=== PATIENT | male | born 1975 | race Caucasian/White ===

== ENCOUNTER 2024-06-16 21:11 | Inpatient (IN) ==
[2024-06-16 22:36] LABS: Appearance Urine Clear (Clear); Bilirubin Urine Negative (Negative); Blood Urine Negative (Negative); Color Urine Dark Yellow; Glucose Urine UA Negative (Negative); Ketones Urine Negative (Negative); Leukocyte Esterase Urine Negative (Negative); Nitrite Urine Negative (Negative); Protein Urine Negative (Negative); Specific Gravity Urine 1.023 (1.000-1.030); Urobilinogen Urine Negative (Negative)
[2024-06-16 23:31] LABS: Basophils # (auto) 0.09 K/uL (0.00-0.20); Basophils % (auto) 0.4 %; Eosinophils # (auto) 0.03 K/uL (0.00-0.50); Eosinophils % (auto) 0.1 %; Hematocrit (blood only) 47.6 % (42.0-52.0); Immature Granulocytes # (auto) 0.35 K/uL (0.01-0.20); Immature Granulocytes % (auto) 1.6 %; Lymphocytes # (auto) 2.04 K/uL (1.20-3.40); Lymphocytes % (auto) 9.3 %; Mean Corpuscular Hemoglobin 29.3 pg (25.0-34.0); Mean Corpuscular Hgb Conc 33.6 g/dL (32.0-36.0); Mean Corpuscular Volume 87.2 fL (80.0-100.0); Mean Platelet Volume 9.3 fL (9.4-12.4); Monocytes # (auto) 1.79 K/uL (0.11-0.59); Monocytes % (auto) 8.1 %; Neutrophils # (auto) 17.71 K/uL (1.40-6.50); Neutrophils % (auto) 80.5 %; Platelet Count 442 K/uL (130-400); RDW Coefficient of Variation 13.7 % (11.5-14.5); RDW Standard Deviation 43.1 fL (36.4-46.3); Red Blood Count 5.46 M/uL (4.70-6.10); White Blood Count 22.01 K/ul (4.8-10.8)
[2024-06-16 23:48] LABS: Albumin Globulin Ratio 1.6 (0.9-2); Albumin Level 4.7 gm/dl (3.4-5.0); BUN Creatinine Ratio 13.8 (10-20); Bilirubin,Total 0.4 mg/dl (0.2-1.0); Calcium 9.3 mg/dl (8.6-10.3); Creatinine Clr Calc Pharmacy 110.8 ml/min; Globulin 2.9 gm/dl (2.5-4.0); Potassium 3.7 mmol/L (3.5-5.1); Total Protein 7.6 gm/dl (6.0-8.3)
[2024-06-16] MEDS: ONDANSETRON INJ 2 MG/ML 2 ML VIAL IV STA (23:58)
[2024-06-16] MEDS: SODIUM CHLORIDE 0.9% 1,000 ML IV SCH (23:59)
[2024-06-16] MEDS: HYDROmorphone INJ 1 MG/ML SYRINGE IV STA (23:59)
--- NOTE | 2024-06-17 00:25 | XRay Report ---
Exam(s): XR CXR 1 VIEW EXAM: XR Chest, 1 View CLINICAL HISTORY: Reason for exam: Sepsis. TECHNIQUE: Frontal view of the chest. COMPARISON: September 25, 2022 FINDINGS: Lungs: Bronchovascular crowding the lung bases due to underinflated lungs greatest exaggerated by large body habitus and portable technique. Mild basilar edema or infiltrate cannot be excluded. Calcified granuloma in the left lung apex, unchanged. Pleural space: Unremarkable. No pneumothorax. Heart: Unremarkable. No cardiomegaly. Mediastinum: Unremarkable. Normal mediastinal contour. Bones/joints: Previous left shoulder arthroplasty. No acute fracture. Upper abdomen: Unremarkable as visualized. No pneumoperitoneum under the diaphragm. IMPRESSION: Bronchovascular crowding the lung bases due to underinflated lungs greatest exaggerated by large body habitus and portable technique. Mild basilar edema or infiltrate cannot be excluded. Electronically signed by: Dale Peoples MD 06/17/24 00:24 AM
[2024-06-17] MEDS: PIPERACILLIN/TAZOBACTAM 4.5 GM/100 ML BAG IV ONE (00:31)
[2024-06-17] MEDS: OPTIRAY 320 100ml IV ONE (00:40)
[2024-06-17 00:44] LABS: Troponin I High Sensitivity 5.9 pg/ml (0-20)
[2024-06-17] MEDS: HYDROmorphone INJ 1 MG/ML SYRINGE IV STA (01:01)
--- NOTE | 2024-06-17 01:44 | CT Scan Report ---
EXAM: CT abd pelvis IV con only CLINICAL HISTORY: eval for perforated bowel?? TECHNIQUE: Multiple contiguous axial images were obtained from the level of diaphragm to the pubis symphysis. This study was acquired after the IV administration of iodinated contrast material, given the patient's indications for the examination. If IV contrast material had not been administered, the likelihood of detecting abnormalities relevant to the patient's condition would have been substantially decreased. Coronal and sagittal reformatted images were generated and reviewed to improve anatomic localization and optimize lesion detection. CT scan was performed according to ALARA (as low as reasonably achievable). COMPARISON: None. FINDINGS: The visualized lung bases are clear. ABDOMEN/PELVIS: Few sigmoid colonic diverticuli are noted. Mild wall thickening is noted along the sigmoid colon. Peridiverticular fat stranding is also seen. Mild pneumoperitoneum is detected. Findings likely suggestive of colitis with diverticulitis and perforation. No evidence of abscess formation. Small fat containing bilateral inguinal hernias are seen, larger on right side. The liver is normal in size and attenuation. No focal liver lesions are seen. There is no intra or extrahepatic biliary ductal dilatation. Hepatic vasculature is patent. The gallbladder is unremarkable. The spleen is unremarkable. The pancreas is unremarkable. Both adrenal glands are unremarkable. The kidneys are normal in size and attenuation. There is no hydronephrosis. No perinephric fat stranding is seen. No renal calculi or renal masses are identified. The ureters are normal in caliber and no ureteral calculi are seen. The bladder is normal in contour. No adenopathy or fluid collections are seen. The aorta is normal in caliber. No aggressive appearing osseous lesions are identified. IMPRESSION: 1. Few sigmoid colonic diverticuli are noted. Mild wall thickening is noted along the sigmoid colon. Peridiverticular fat stranding is also seen. 2. Mild pneumoperitoneum is detected. Findings likely suggestive of colitis/diverticulitis with perforation. No evidence of abscess or collection formation. 3. Small fat containing bilateral inguinal hernias are seen, larger on right side. Electronically signed by Osmar Lovelace 06-17-2024 01:43 AM
[2024-06-17] MEDS: SODIUM CHLORIDE 0.9% 500 ML IV SCH (02:15)
[2024-06-17] MEDS: SODIUM CHLORIDE 0.9% 500 ML IV ONE (02:17)
--- NOTE | 2024-06-17 02:19 | History & Physical Report ---
Date of Service June 17, 2024 Assessment & Plan (1) Diverticulitis: Plan: diverticulitis with perforation not septic IV zosyn IVF NPO if fails will need exploration History of Present Illness Primary Care Provider: Osmar Osei DO This is a 49-year-old male who comes to the ED with acute abdominal pain. He denies any fevers or chills. A CT scan was done which shows diverticulitis with small perforation. Allergies Allergy/AdvReac Type Severity Reaction Status Date / Time No Known Drug Allergies Allergy Verified 06/06/24 09:17 Home Medications Medication Instructions Recorded Confirmed Type glucosamine 750 mg-MSM 60 1 tab PO DAILY 02/27/22 06/17/24 History mg-chondroit 150 mg-hyaluron ac 1 mg tablet (glucosamine-chondroitin) multivitamin (Daily Multi-Vitamin 1 tab PO DAILY 02/27/22 06/17/24 History tablet) albuterol sulfate 90 mcg/actuation 2 inh inhalation QID PRN shortness 09/25/22 06/17/24 Rx aerosol inhaler of breath or wheezing #8.5 grams Ernestine Kyle Mushroom 1 tab PO DAILY 02/18/24 06/17/24 History Solomon Multivitamin For Men 1 tab PO DAILY 02/18/24 06/17/24 History diclofenac sodium 75 mg 75 mg PO BID PRN Pain 02/18/24 06/17/24 History tablet,delayed release meloxicam 15 mg tablet 15 mg PO DAILY PRN Pain 02/18/24 06/17/24 History amlodipine 5 mg tablet 5 mg PO QAM #90 tabs 03/10/24 06/17/24 Rx pantoprazole 40 mg tablet,delayed 40 mg PO QAM #90 tabs 03/10/24 06/17/24 Rx release (Protonix) oxycodone 5 mg tablet 5 mg PO Q6H PRN pain #30 tabs 04/25/24 06/17/24 Rx hydroxyzine HCl 25 mg tablet 25 mg PO BID PRN itching #60 tabs 04/29/24 06/17/24 Rx triamcinolone acetonide 0.1 % 1 applic topical TID PRN eczema 06/06/24 06/17/24 Rx topical cream #30 grams prednisone 20 mg tablet 20 mg PO DAILY #18 tabs 06/12/24 06/17/24 Rx Past Med/Surg History Problem List (Updated 06/17/24 @ 02:24 by Yasmani Lo MD) Diverticulitis 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 of left shoulder Medical History Asthmatic bronchitis Acid reflux Hypertension Osteoarthritis of left shoulder Surgical History H/O elbow surgery S/P appendectomy S/P wisdom tooth extraction Family History Grandfather (Maternal) Myocardial infarction Grandfather (Paternal) Prostate cancer Denies family history of Ovarian cancer Breast cancer Colorectal cancer Social History Smoking Status: Former smoker Tobacco Type: Cigarettes and Smokeless Tobacco (Dip or Chew) Age Started Using Tobacco: 21; Age Quit Using Tobacco: 39; packs per day: 1; Cigarettes Per Day: 20; Second Hand Exposure: No; Do You Dip or Chew Tobacco: Yes (Daily- Advised none DOS); Hx Alcohol Use: Yes Alcohol type: beer and hard liquor Alcohol Intake Frequency: 2-3 x/Week Hx Substance Use: No Preferred Language: Arabic Communication Ability: Effective Visual Impairment: No Limitations Hearing Ability: Normal Billet Shearer Required: No Beliefs That Will Affect Care: None marital status: Current Living Situation: Spouse current occupational status: employed 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[employer] How many Children do You have: 3 Feels Safe at Home: Yes Childhood Exposure to Second-Hand Smoke: Yes Diet: regular caffeine: Yes during the past year weight has: remained stable Dental Care, Regularly: Yes Physical Activity Frequency: Daily Seatbelt Use: sometimes Sunscreen Use: No Assistive Devices: Glasses Review of Systems + anorexia; no fever and no chills no problem reported no problem reported no cough and no dyspnea no chest pain + abdominal pain; no nausea, no vomiting and no change in bowel habits no dysuria no back pain no problem reported no localized weakness and no generalized weakness no behavioral changes no easy bleeding and no easy bruising Physical Exam Constitutional: WD/WN, vitals as above Eyes: no scleral abnormality ENMT: external ear and nose normal, oropharynx normal Neck: trachea midline Respiratory: normal respiratory effort, lungs clear to auscultation no respiratory distress Cardiovascular: RRR, no murmur, no edema Gastrointestinal (Abdomen): Inspection/Auscultation: abdomen normal to inspection and + abdomen distended; + abnormal bowel sounds Percussion/Palpation: + abdomen tender, + abdomen rigid and abdomen soft; no guarding Musculoskeletal: Head/Neck/Chest: normocephalic and head atraumatic Skin: no rashes, warm and dry Results & Data Vital Signs (Past 12 Hours) Vital Signs Temp Pulse Pulse Resp BP BP Pulse Ox 06/17/24 01:30 100 H 19 151/92 H 93 06/17/24 01:09 95 H 17 137/86 95 06/16/24 23:39 85 18 122/80 99 06/16/24 23:08 80 18 130/84 96 06/16/24 21:25 37 C 90 19 122/86 95 O2 Del Method 06/17/24 01:30 Room Air 06/17/24 01:09 06/16/24 23:39 Room Air 06/16/24 23:08 Room Air 06/16/24 21:25 Room Air Diagnostic Findings EXAM: CT abd pelvis IV con only ADDENDUM: [facility] was called at [phone] at 12:44 AM [facility], 06/17/2024, and Luz Bullard was informed regarding the presence of critical medical findings in the report and she confirmed that they have received the report Electronically signed by Osmar Lovelace 06-17-2024 01:47 AM ADDENDUM END ADDENDUM Addendum Report EXAM: CT abd pelvis IV con only ADDENDUM: [facility] was called at [phone] at 12:44 AM [facility], 06/17/2024, and Luz Bullard was informed regarding the presence of critical medical findings in the report and she confirmed that they have received the report Electronically signed by Osmar Lovelace 06-17-2024 01:47 AM ADDENDUM END ADDENDUM Addendum Report EXAM: CT abd pelvis IV con only ADDENDUM: [facility] ER was called at [phone] at 12:44 AM [employer], 06/17/2024, and Luz Bullard was informed regarding the presence of critical medical findings in the report and she confirmed that they have received the report Electronically signed by Osmar Lovelace 06-17-2024 01:47 AM ADDENDUM END EXAM: CT abd pelvis IV con only CLINICAL HISTORY: eval for perforated bowel?? TECHNIQUE: Multiple contiguous axial images were obtained from the level of diaphragm to the pubis symphysis. This study was acquired after the IV administration of iodinated contrast material, given the patient's indications for the examination. If IV contrast material had not been administered, the likelihood of detecting abnormalities relevant to the patient's condition would have been substantially decreased. Coronal and sagittal reformatted images were generated and reviewed to improve anatomic localization and optimize lesion detection. CT scan was performed according to ALARA (as low as reasonably achievable). COMPARISON: None. FINDINGS: The visualized lung bases are clear. ABDOMEN/PELVIS: Few sigmoid colonic diverticuli are noted. Mild wall thickening is noted along the sigmoid colon. Peridiverticular fat stranding is also seen. Mild pneumoperitoneum is detected. Findings likely suggestive of colitis with diverticulitis and perforation. No evidence of abscess formation. Small fat containing bilateral inguinal hernias are seen, larger on right side. The liver is normal in size and attenuation. No focal liver lesions are seen. There is no intra or extrahepatic biliary ductal dilatation. Hepatic vasculature is patent. The gallbladder is unremarkable. The spleen is unremarkable. The pancreas is unremarkable. Both adrenal glands are unremarkable. The kidneys are normal in size and attenuation. There is no hydronephrosis. No perinephric fat stranding is seen. No renal calculi or renal masses are identified. The ureters are normal in caliber and no ureteral calculi are seen. The bladder is normal in contour. No adenopathy or fluid collections are seen. The aorta is normal in caliber. No aggressive appearing osseous lesions are identified. IMPRESSION: 1. Few sigmoid colonic diverticuli are noted. Mild wall thickening is noted along the sigmoid colon. Peridiverticular fat stranding is also seen. 2. Mild pneumoperitoneum is detected. Findings likely suggestive of colitis/diverticulitis with perforation. No evidence of abscess or collection formation. 3. Small fat containing bilateral inguinal hernias are seen, larger on right side.
[2024-06-17] MEDS ORDERED: MoRPHine SULFATE 2 MG/ML CARP IV PRN ×2 (04:11→10:43)
[2024-06-17] MEDS ORDERED: ACETAMINOPHEN 325 MG TAB PO PRN (04:11)
[2024-06-17] MEDS ORDERED: ONDANSETRON INJ 2 MG/ML 2 ML VIAL IV PRN (04:11)
[2024-06-17] MEDS: MoRPHine SULFATE 2 MG/ML CARP IV PRN ×2 (05:10→20:29)
[2024-06-17] MEDS: KETOROLAC 30 MG/ML VIAL IV PRN (05:30)
[2024-06-17 07:48] LABS: Basophils # (auto) 0.06 K/uL (0.00-0.20); Basophils % (auto) 0.3 %; Eosinophils # (auto) 0.03 K/uL (0.00-0.50); Eosinophils % (auto) 0.2 %; Hematocrit (blood only) 38.3 % (42.0-52.0); Hemoglobin 12.9 g/dl (14.0-18.0); Immature Granulocytes # (auto) 0.16 K/uL (0.01-0.20); Immature Granulocytes % (auto) 0.8 %; Lymphocytes % (auto) 8.3 %; Mean Corpuscular Hemoglobin 29.1 pg (25.0-34.0); Mean Corpuscular Hgb Conc 33.7 g/dL (32.0-36.0); Mean Corpuscular Volume 86.5 fL (80.0-100.0); Mean Platelet Volume 9.4 fL (9.4-12.4); Monocytes # (auto) 1.82 K/uL (0.11-0.59); Monocytes % (auto) 9.4 %; Neutrophils # (auto) 15.67 K/uL (1.40-6.50); Platelet Count 382 K/uL (130-400); RDW Coefficient of Variation 13.7 % (11.5-14.5); RDW Standard Deviation 43.3 fL (36.4-46.3); Red Blood Count 4.43 M/uL (4.70-6.10); White Blood Count 19.34 K/ul (4.8-10.8)
--- NOTE | 2024-06-17 08:54 | Surgery Progress Note ---
Date of Service June 17, 2024 Assessment & Plan (1) Diverticulitis: Plan: Complicated diverticulitis with microperf, no abscess avss Leukocytosis improving (22k --> 19K) Plan: Pain management as needed IV zosyn IVF NPO, okay for ice chips encourage ambulation will need colonoscopy in 6-8 weeks, low fiber diet on discharge Dr. boogie has seen and examined pt, agrees with above. Admission and Anticipated Discharge Date Admission Date: June 17, 2024 Subjective feeling slightly better but still having moderate pain no nausea or vomiting some pain after urinating no fevers or chills Physical Exam Constitutional: WD/WN, vitals as above cooperative; no acute distress and not ill appearing Respiratory: normal respiratory effort, lungs clear to auscultation Cardiovascular: RRR, no murmur, no edema Gastrointestinal (Abdomen): Inspection/Auscultation: abdomen normal to inspection and + abdomen distended (mild) Percussion/Palpation: + abdomen tender (LLQ and RLQ), + guarding (voluntary in RLQ and LLQ) and abdomen soft; abdomen not rigid and abdomen not firm Skin: no rashes, warm and dry Psychiatric: A+Ox3, euthymic affect Results & Data Vital Signs (Past 12 Hours) Vital Signs Temp Pulse Pulse Resp BP BP Pulse Ox 06/17/24 06:12 88 95 06/17/24 04:05 37.1 C 91 H 16 149/84 H 93 06/17/24 01:30 100 H 19 151/92 H 93 06/17/24 01:09 95 H 17 137/86 95 06/16/24 23:39 85 18 122/80 99 06/16/24 23:08 80 18 130/84 96 06/16/24 21:25 37 C 90 19 122/86 95 O2 Del Method 06/17/24 06:12 Room Air 06/17/24 04:05 Room Air 06/17/24 01:30 Room Air 06/17/24 01:09 06/16/24 23:39 Room Air 06/16/24 23:08 Room Air 06/16/24 21:25 Room Air Laboratory Results 06/17/24 06/16/24 06/16/24 Range/Units 07:07 23:39 23:30 WBC 19.34 H (4.8-10.8) K/ul RBC 4.43 L (4.70-6.10) M/uL Hgb 12.9 L D (14.0-18.0) g/dl Hct 38.3 L (42.0-52.0) % MCV 86.5 (80.0-100.0) fL MCH 29.1 (25.0-34.0) pg MCHC 33.7 (32.0-36.0) g/dL RDW Std Deviation 43.3 (36.4-46.3) fL RDW Coeff of Danilo 13.7 (11.5-14.5) % Plt Count 382 (130-400) K/uL MPV 9.4 (9.4-12.4) fL Immature Gran % (Auto) 0.8 % Neut % (Auto) 81.0 % Lymph % (Auto) 8.3 % [place] % (Auto) 9.4 % Eos % (Auto) 0.2 % Baso % (Auto) 0.3 % Neut # (Auto) 15.67 H (1.40-6.50) K/uL Lymph # (Auto) 1.60 (1.20-3.40) K/uL [place] # (Auto) 1.82 H (0.11-0.59) K/uL Eos # (Auto) 0.03 (0.00-0.50) K/uL Baso # (Auto) 0.06 (0.00-0.20) K/uL Immature Gran # (Auto) 0.16 (0.01-0.20) K/uL Sodium (136-145) mmol/L Potassium (3.5-5.1) mmol/L Chloride (98-107) mmol/L Carbon Dioxide (21-32) mmol/L Anion Gap (3-11) BUN (6-23) mg/dl Creatinine (0.6-1.4) mg/dl Est Cr Clr Drug Dosing ml/min eGFR BUN/Creatinine Ratio (10-20) Glucose (70-99(Fasting)) mg/dl Lactate 1.9 (0.4-2.0) mmol/L Calcium (8.6-10.3) mg/dl Magnesium 2.0 (1.7-2.4) mg/dl Total Bilirubin (0.2-1.0) mg/dl AST (13-39) U/L ALT (7-52) U/L Alkaline Phosphatase (34-104) U/L Troponin I High Sens 5.9 (0-20) pg/ml Total Protein (6.0-8.3) gm/dl Albumin (3.4-5.0) gm/dl Globulin (2.5-4.0) gm/dl Albumin/Globulin Ratio (0.9-2) Lipase (11-82) U/L Procalcitonin (0-0.5) ng/ml Urine Color Urine Appearance (Clear) Urine pH (4.5-7.5) Ur Specific [place] (1.000-1.030) Urine Protein (Negative) Urine Glucose (UA) (Negative) Urine Ketones (Negative) Urine Blood (Negative) Urine Nitrite (Negative) Urine Bilirubin (Negative) Urine Urobilinogen (Negative) Ur Leukocyte Esterase (Negative) 06/16/24 06/16/24 06/16/24 Range/Units 23:05 22:56 22:21 WBC 22.01 H (4.8-10.8) K/ul RBC 5.46 (4.70-6.10) M/uL Hgb 16.0 (14.0-18.0) g/dl Hct 47.6 (42.0-52.0) % MCV 87.2 (80.0-100.0) fL MCH 29.3 (25.0-34.0) pg MCHC 33.6 (32.0-36.0) g/dL RDW Std Deviation 43.1 (36.4-46.3) fL RDW Coeff of Danilo 13.7 (11.5-14.5) % Plt Count 442 H (130-400) K/uL MPV 9.3 L (9.4-12.4) fL Immature Gran % (Auto) 1.6 % Neut % (Auto) 80.5 % Lymph % (Auto) 9.3 % [place] % (Auto) 8.1 % Eos % (Auto) 0.1 % Baso % (Auto) 0.4 % Neut # (Auto) 17.71 H (1.40-6.50) K/uL Lymph # (Auto) 2.04 (1.20-3.40) K/uL [place] # (Auto) 1.79 H (0.11-0.59) K/uL Eos # (Auto) 0.03 (0.00-0.50) K/uL Baso # (Auto) 0.09 (0.00-0.20) K/uL Immature Gran # (Auto) 0.35 H (0.01-0.20) K/uL Sodium 142 (136-145) mmol/L Potassium 3.7 (3.5-5.1) mmol/L Chloride 104 (98-107) mmol/L Carbon Dioxide 30 (21-32) mmol/L Anion Gap 8 (3-11) BUN 15 (6-23) mg/dl Creatinine 1.09 (0.6-1.4) mg/dl Est Cr Clr Drug Dosing 110.8 ml/min eGFR 84.24 BUN/Creatinine Ratio 13.8 (10-20) Glucose 120 H (70-99(Fasting)) mg/dl Lactate (0.4-2.0) mmol/L Calcium 9.3 (8.6-10.3) mg/dl Magnesium (1.7-2.4) mg/dl Total Bilirubin 0.4 (0.2-1.0) mg/dl AST 15 (13-39) U/L ALT 22 (7-52) U/L Alkaline Phosphatase 70 (34-104) U/L Troponin I High Sens (0-20) pg/ml Total Protein 7.6 (6.0-8.3) gm/dl Albumin 4.7 (3.4-5.0) gm/dl Globulin 2.9 (2.5-4.0) gm/dl Albumin/Globulin Ratio 1.6 (0.9-2) Lipase 16 (11-82) U/L Procalcitonin 0.06 (0-0.5) ng/ml Urine Color Dark Yellow Urine Appearance Clear (Clear) Urine pH 6.0 (4.5-7.5) Ur Specific [place] 1.023 (1.000-1.030) Urine Protein Negative (Negative) Urine Glucose (UA) Negative (Negative) Urine Ketones Negative (Negative) Urine Blood Negative (Negative) Urine Nitrite Negative (Negative) Urine Bilirubin Negative (Negative) Urine Urobilinogen Negative (Negative) Ur Leukocyte Esterase Negative (Negative)
[2024-06-17] MEDS: PIPERACILLIN/TAZOBACTAM 4.5 GM/100 ML BAG IV SCH (08:58)
[2024-06-17] MEDS: amLODIPine BESYLATE 5 MG TAB PO SCH (08:58)
[2024-06-17] MEDS: PANTOprazole 40 MG TAB PO SCH (08:58)
[2024-06-17] MEDS: MoRPHine SULFATE 4 MG/ML 1 ML CARP\\VIAL IV PRN (12:55)
[2024-06-18 06:33] LABS: Basophils % (auto) 0.4 %; Eosinophils % (auto) 0.9 %; Hematocrit (blood only) 41.1 % (42.0-52.0); Hemoglobin 13.9 g/dl (14.0-18.0); Immature Granulocytes # (auto) 0.16 K/uL (0.01-0.20); Immature Granulocytes % (auto) 0.7 %; Lymphocytes # (auto) 1.46 K/uL (1.20-3.40); Lymphocytes % (auto) 6.5 %; Mean Corpuscular Hemoglobin 29.7 pg (25.0-34.0); Mean Corpuscular Hgb Conc 33.8 g/dL (32.0-36.0); Mean Corpuscular Volume 87.8 fL (80.0-100.0); Mean Platelet Volume 9.5 fL (9.4-12.4); Monocytes % (auto) 7.2 %; Neutrophils # (auto) 18.78 K/uL (1.40-6.50); Neutrophils % (auto) 84.3 %; Platelet Count 392 K/uL (130-400); RDW Coefficient of Variation 13.4 % (11.5-14.5); RDW Standard Deviation 43.3 fL (36.4-46.3); Red Blood Count 4.68 M/uL (4.70-6.10)
[2024-06-18 07:36] LABS: BUN Creatinine Ratio 16.5 (10-20); Calcium 8.2 mg/dl (8.6-10.3); Creatinine Clr Calc Pharmacy 124.1 ml/min; Potassium 3.6 mmol/L (3.5-5.1)
--- NOTE | 2024-06-18 10:41 | Surgery Progress Note ---
Date of Service June 18, 2024 Assessment & Plan (1) Diverticulitis: Plan: continue abx begin clears hospitalist to see for HTN Admission and Anticipated Discharge Date Admission Date: June 17, 2024 Subjective clinically improved fever overnight WBC slightly elevated Review of Systems Constitutional: + fever; no chills Respiratory: no cough and no dyspnea Cardiovascular: no chest pain Gastrointestinal: + abdominal pain; no nausea, no vomiting and no diarrhea/loose stools Genitourinary: no dysuria Musculoskeletal: no back pain Neurologic: no localized weakness and no generalized weakness Psychiatric: no behavioral changes Hematologic / Lymphatic: no easy bleeding and no easy bruising Physical Exam Constitutional: WD/WN, vitals as above Respiratory: normal respiratory effort, lungs clear to auscultation Cardiovascular: RRR, no murmur, no edema Gastrointestinal (Abdomen): Inspection/Auscultation: abdomen normal to inspection and normal bowel sounds; abdomen not distended Percussion/Palpation: + abdomen tender and abdomen soft; no guarding and abdomen not rigid Musculoskeletal: Head/Neck/Chest: normocephalic and head atraumatic Skin: no rashes, warm and dry Results & Data Vital Signs (Past 12 Hours) Vital Signs Temp Pulse Resp BP Pulse Ox O2 Del Method 06/18/24 06:52 37.0 C 74 16 127/78 94 Room Air
[2024-06-18] MEDS ORDERED: hydrALAZINE HCL 20 MG/ML VIAL IV PRN (11:52)
--- NOTE | 2024-06-18 11:56 | Hospitalist Consultation ---
Date of Consultation June 18, 2024 Assessment & Plan (1) Diverticulitis: (2) Hypertension: Plan Mr. Tse is a pleasant 49-year-old male with PMH of hypertension, asthmatic bronchitis, osteoarthritis of left shoulder, GERD, and eczema. He presented to the ED on 06/17/2024 with acute abdominal pain and CT scan revealed diverticulitis with small perforation, no abscess. He was admitted under general surgery's service. He has been treated conservatively with IV antibiotics and supportive measures. Hospital medicine was consulted for hypertension. At time of consult, patient's blood pressure is 137/86. #Diverticulitis Continue management per primary team #Hypertension At time of consult, patient's blood pressure is 137/86 Continue home hypertension regimen of amlodipine 5 mg daily Would ensure pain is controlled - patient reports it is at time of consult Will add hydralazine 10 mg IV Q8H PRN for SBP>185 or DBP>95. No additional blood pressure management indicated at this time Hospital medicine will sign off at this time. Please reach out with any additional questions or concerns. Supervising Physician Co-Signing Physician Notes Patient seen and examined, chart reviewed, case discussed with Ani Panchal PA-C and I agree with the assessment and plan as above except as otherwise noted Labs and images reviewed 49-year-old male with history of hypertension, asthmatic bronchitis, OA, GERD, eczema. Presented with acute abdominal pain and found to have diverticulitis with small perforation without significant abscess. Was admitted by surgery and medicine consulted for comanagement. He is normotensive and afebrile. Pain is adequately controlled. Blood pressure control is acceptable at time of visit. Can keep hydralazine on-call as noted however would not use unless he has persistently elevated SBP greater than [id number] and pain is adequately treated. Does not appear toxic CT independently reviewed. CT is with a few small colonic diverticuli, mild pneumoperitoneum suggestive of colitis/diverticulitis with perforation. Leukocytosis 22 is present. Agree with treatment of diverticulitis with Zosyn. Surgery is following due to perforation, surgical intervention is not recommended at this time. If continued improvement narrow to Unasyn to target Augmentin as oral option. Multimodal pain control, Tylenol, Toradol, hydromorphone for breakthrough. Will decrease Toradol from 30 mg every 6 to 10 mg every 6 maximize benefit while minimizing renal risks. At bedside exam for reassessment abd is with minimal diffuse TTP, no rebound/involuntary guarding. Pt feels this is significantly improved compared to prior exam. Continue serial exams Agree with above History of Present Illness Reason for Consultation: Hypertension Requesting Physician: Yasmani Lo MD Attending Physician: Yasmani Lo MD History of Present Illness Mr. Tse is a pleasant 49-year-old male with PMH of hypertension, asthmatic bronchitis, osteoarthritis of left shoulder, GERD, and eczema. He presented to the ED on 06/17/2024 with acute abdominal pain and CT scan revealed diverticulitis with small perforation, no abscess. He has been treated conservatively with IV antibiotics and supportive measures. Hospital medicine was consulted for hypertension. At time of consult, patient's blood pressure is 137/86. He reports feeling better than when he first came in. He is tolerating his advancement to clear liquid diet well. He reports some abdominal pain but notes this is improved than previously and well-controlled with medication. He denies chills, dizziness, lightheadedness, chest pain, shortness of breath, nausea, vomiting, diarrhea, urinary symptoms. He did have a headache earlier which he attributed to his NPO status and notes this is improved at this time. He reports that he takes amlodipine 5 mg daily at home for his hypertension. Mr. Tse denies any concerns or questions at this time. Allergies Allergy/AdvReac Type Severity Reaction Status Date / Time No Known Drug Allergies Allergy Verified 06/06/24 09:17 Home Medications Medication Instructions Recorded Confirmed Type glucosamine 750 mg-MSM 60 1 tab PO DAILY 02/27/22 06/17/24 History mg-chondroit 150 mg-hyaluron ac 1 mg tablet (glucosamine-chondroitin) multivitamin (Daily Multi-Vitamin 1 tab PO DAILY 02/27/22 06/17/24 History tablet) albuterol sulfate 90 mcg/actuation 2 inh inhalation QID PRN shortness 09/25/22 06/17/24 Rx aerosol inhaler of breath or wheezing #8.5 grams Lions Saroj Mushroom 1 tab PO DAILY 02/18/24 06/17/24 History Solomon Multivitamin For Men 1 tab PO DAILY 02/18/24 06/17/24 History diclofenac sodium 75 mg 75 mg PO BID PRN Pain 02/18/24 06/17/24 History tablet,delayed release meloxicam 15 mg tablet 15 mg PO DAILY PRN Pain 02/18/24 06/17/24 History amlodipine 5 mg tablet 5 mg PO QAM #90 tabs 03/10/24 06/17/24 Rx pantoprazole 40 mg tablet,delayed 40 mg PO QAM #90 tabs 03/10/24 06/17/24 Rx release (Protonix) oxycodone 5 mg tablet 5 mg PO Q6H PRN pain #30 tabs 04/25/24 06/17/24 Rx hydroxyzine HCl 25 mg tablet 25 mg PO BID PRN itching #60 tabs 04/29/24 06/17/24 Rx triamcinolone acetonide 0.1 % 1 applic topical TID PRN eczema 06/06/24 06/17/24 Rx topical cream #30 grams prednisone 20 mg tablet 20 mg PO DAILY #18 tabs 06/12/24 06/17/24 Rx Patient History Medical History Asthmatic bronchitis Acid reflux Hypertension Osteoarthritis of left shoulder Surgical History H/O elbow surgery S/P appendectomy S/P wisdom tooth extraction Family History Grandfather (Maternal) Myocardial infarction Grandfather (Paternal) Prostate cancer Denies family history of Ovarian cancer Breast cancer Colorectal cancer Social History Smoking Status: Never smoker Tobacco Type: Smokeless Tobacco (Dip or Chew) Age Started Using Tobacco: 21; Age Quit Using Tobacco: 39; packs per day: 1; Cigarettes Per Day: 20; Second Hand Exposure: No; Do You Dip or Chew Tobacco: Yes; Tobacco Cessation Education Requested by Patient: No Hx Alcohol Use: Yes Alcohol type: beer Alcohol Intake Frequency: 2-3 x/Week Hx Substance Use: No Preferred Language: Persian Communication Ability: Effective Visual Impairment: No Limitations Hearing Ability: Normal Spike Machine Feeder Required: No Beliefs That Will Affect Care: None marital status: Current Living Situation: Spouse and Family Current Living Situation Comment: Lives with and 3 children. 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 Cardiac: Regular rate and rhythm without murmurs gallops or rubs. No peripheral edema. Pulm: Clear to auscultation bilaterally without wheezes, rales or rhonchi. Normal respiratory effort. 97% on room air. Abdominal: Soft, nondistended. Tender to palpation. No guarding or rebound tenderness. Bowel sounds present. Neuro: A&O x3. No focal neurological deficits. Results & Data Results & Data Vital Signs (Past 12 Hours) Vital Signs Temp Pulse Resp BP Pulse Ox O2 Del Method 06/18/24 11:03 99.3 F 65 22 137/86 97 Room Air 06/18/24 10:00 99.2 F 62 20 138/89 96 Room Air 06/18/24 06:52 98.6 F 74 16 127/78 94 Room Air Laboratory Results Reviewed CBC with differential Reviewed BMP Diagnostic Findings Reviewed CT A/P Reviewed CXR PG Care Time/CCT Total # of Minutes Spent Total Time Spent with Patient: Total time spent is greater than 50% in coordination of care (as documented) at patient's floor/unit and/or counseling patient: Coding Level of Care Code 41564 IN/OBS CONSULT LVL 3,45M Diagnoses Diverticulitis K57.92 Hypertension I10
--- NOTE | 2024-06-18 13:45 | Emergency Department Note ---
Impression & Plan Diverticulitis of intestine with perforation Admit to General Surgery ED Provider Note NAME: ZINA APARICIO AGE: 49 SEX: Male INFORMANT: Patient ED PROVIDER(S): Luz Meraz DO CHIEF COMPLAINT: Suprapubic abdominal pain PLAN: Disposition: Admit to general surgery MEDICAL DECISION MAKING: This is a 49-year-old male patient who presents to the emergency department complaining of sudden onset of abdominal pain and pelvic pain. Patient describes radiation of pain into his groin and becoming diaphoretic. He also describes some urinary symptoms. Patient was noted to have significant leukocytosis with a white count of 22,000. A septic protocol was performed. She was immediately given a dose of IV Zosyn. Other laboratory studies were unremarkable with a normal H&H, glucose 120. Troponin was negative. Lactate and procalcitonin were negative. CT scan of the abdomen/pelvis showed evidence of sigmoid diverticulitis with small area of perforation. Patient's pain was treated with IV Dilaudid. I discussed the case with the surgeon on-call and he evaluated the patient for admission to the hospital. Care/management discussed with: manager financial and general surgery on-call Triage Nursing notes: reviewed and agree with them. Vital Signs: reviewed and unremarkable Additional History obtained from: Patient's is at the bedside Differential Diagnosis: Cystitis, pyelonephritis, ureteral colic, diverticulitis, colitis, perforated diverticulitis, inguinal hernia Diagnostics, independently interpreted by me: ECG: Normal Sinus Rhythm at a rate of 92. No ST/ T wave changes or signs of ischemia. There is no ectopy. Cardiac Monitoring: Normal sinus rhythm at 96 Imaging studies: CT scan of the abdomen/pelvis: As per [facility] HPI: 49 year old Male arrives for evaluation of RLQ abd. pain. Around noontime today, the patient developed suprapubic abdominal cramping and pelvic pain. He states the pain seemed to go into his groin area. He developed urinary frequency and dysuria. He felt a cold sensation began to sweat he denies ever having pain like this in the past. PAST MEDICAL HISTORY: Patient was on a steroid taper for another medical issue, PAST SURGICAL HISTORY: Recent shoulder surgery, SOCIAL HISTORY: , HOME MEDICATIONS: See list ALLERGIES: None VITALS: See Below PHYSICAL EXAMINATION: HEENT: Head - normocephalic and atraumatic. Pupils are equal, round, and reactive to light. Extraocular eye muscles are intact, and sclera are anicteric. Nose - moist nasal mucosa without discharge. Mouth - moist buccal mucosa. Oropharynx is nonerythematous and there is no tonsillar exudate or edema noted. Neck: Supple; no cervical lymphadenopathy or nuchal rigidity Heart: Regular rate and rhythm. There is a normal S1 and S2 with no murmurs, clicks, or gallops appreciated. Lungs: Clear to auscultation bilaterally with no wheezes, rales, or rhonchi. Abdomen: Soft moderate tenderness to palpation in the right lower quadrant of the abdomen and suprapubic region. The rest of the abdomen is nondistended, with good bowel sounds. There are no palpable pulsatile masses or hepatosplenomegaly. There is no guarding, rigidity, or rebound noted. Extremities: No evidence of cyanosis, clubbing, or edema. There are easily palpable peripheral pulses. Skin: warm and dry with good turgor and no rashes. Emergency Department treatment: front desk monitor, IV normal saline bolus, IV Dilaudid, IV Zofran, IV Zosyn, IV normal saline drip Emergency Department course: The patient was evaluated room A-9. A complete history and physical was performed. An order was placed for continuous cardiac monitoring. The patient was in a normal sinus rhythm at a rate of 96. Twelve- lead EKG was obtained as described above. Once the patient was noted to have a white blood cell count greater than 22,000, a septic workup was ordered including blood cultures and the patient was ordered to have IV Zosyn. CT scan of the abdomen/pelvis was performed. The patient was placed on a normal saline drip and I contacted the surgeon on-call. Patient remains hemodynamically stable. Past Med/Surg History Problem List (Updated 06/18/24 @ 13:45 by Luz Meraz DO) Diverticulitis of intestine with perforation (Acute) Diverticulitis 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 of left shoulder Medical History Asthmatic bronchitis Acid reflux Hypertension Osteoarthritis of left shoulder Surgical History H/O elbow surgery S/P appendectomy S/P wisdom tooth extraction Family History Grandfather (Maternal) Myocardial infarction Grandfather (Paternal) Prostate cancer Denies family history of Ovarian cancer Breast cancer Colorectal cancer Social History Smoking Status: Never smoker Tobacco Type: Smokeless Tobacco (Dip or Chew) Age Started Using Tobacco: 21; Age Quit Using Tobacco: 39; packs per day: 1; Cigarettes Per Day: 20; Second Hand Exposure: No; Do You Dip or Chew Tobacco: Yes; Tobacco Cessation Education Requested by Patient: No Hx Alcohol Use: Yes Alcohol type: beer Alcohol Intake Frequency: 2-3 x/Week Hx Substance Use: No Preferred Language: Danish Communication Ability: Effective Visual Impairment: No Limitations Hearing Ability: Normal Marketing Agent Required: No Beliefs That Will Affect Care: None marital status: Current Living Situation: Spouse and Family Current Living Situation Comment: Lives with and 3 children. 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 How many Children do You have: 3 Other Information That Helps Us Care for You: No Feels Safe at Home: Yes Safety Concerns: Feels Safe At This Time Childhood Exposure to Second-Hand Smoke: Yes Diet: regular caffeine: Yes during the past year weight has: remained stable Dental Care, Regularly: Yes Physical Activity Frequency: Daily Seatbelt Use: sometimes Sunscreen Use: No Assistive Devices: None Allergies Allergies Allergy/AdvReac Type Severity Reaction Status Date / Time No Known Drug Allergies Allergy Verified 06/06/24 09:17 Home Meds Home Medications Medication Instructions Recorded Confirmed glucosamine 750 mg-MSM 60 1 tab PO DAILY 02/27/22 06/17/24 mg-chondroit 150 mg-hyaluron ac 1 mg tablet (glucosamine-chondroitin) multivitamin (Daily Multi-Vitamin 1 tab PO DAILY 02/27/22 06/17/24 tablet) Ernestine Kyle Mushroom 1 tab PO DAILY 02/18/24 06/17/24 Solomon Multivitamin For Men 1 tab PO DAILY 02/18/24 06/17/24 diclofenac sodium 75 mg 75 mg PO BID PRN Pain 02/18/24 06/17/24 tablet,delayed release meloxicam 15 mg tablet 15 mg PO DAILY PRN Pain 02/18/24 06/17/24 Previous Rx's Medication Instructions Recorded albuterol sulfate 90 mcg/actuation 2 inh inhalation QID PRN shortness 09/25/22 aerosol inhaler of breath or wheezing #8.5 grams amlodipine 5 mg tablet 5 mg PO QAM #90 tabs 03/10/24 pantoprazole 40 mg tablet,delayed 40 mg PO QAM #90 tabs 03/10/24 release (Protonix) oxycodone 5 mg tablet 5 mg PO Q6H PRN pain #30 tabs 04/25/24 hydroxyzine HCl 25 mg tablet 25 mg PO BID PRN itching #60 tabs 04/29/24 triamcinolone acetonide 0.1 % 1 applic topical TID PRN eczema 06/06/24 topical cream #30 grams prednisone 20 mg tablet 20 mg PO DAILY #18 tabs 06/12/24 Results & Data (ED) Laboratory Data 06/19/24 07:43 06/18/24 06:04 Lab Results 06/16/24 06/16/24 06/16/24 Range/Units 22:21 22:56 23:05 WBC 22.01 H (4.8-10.8) K/ul RBC 5.46 (4.70-6.10) M/uL Hgb 16.0 (14.0-18.0) g/dl Hct 47.6 (42.0-52.0) % MCV 87.2 (80.0-100.0) fL MCH 29.3 (25.0-34.0) pg MCHC 33.6 (32.0-36.0) g/dL RDW Std Deviation 43.1 (36.4-46.3) fL RDW Coeff of Danilo 13.7 (11.5-14.5) % Plt Count 442 H (130-400) K/uL MPV 9.3 L (9.4-12.4) fL Immature Gran % (Auto) 1.6 % Neut % (Auto) 80.5 % Lymph % (Auto) 9.3 % Story % (Auto) 8.1 % Eos % (Auto) 0.1 % Baso % (Auto) 0.4 % Neut # (Auto) 17.71 H (1.40-6.50) K/uL Lymph # (Auto) 2.04 (1.20-3.40) K/uL Story # (Auto) 1.79 H (0.11-0.59) K/uL Eos # (Auto) 0.03 (0.00-0.50) K/uL Baso # (Auto) 0.09 (0.00-0.20) K/uL Immature Gran # (Auto) 0.35 H (0.01-0.20) K/uL Sodium 142 (136-145) mmol/L Potassium 3.7 (3.5-5.1) mmol/L Chloride 104 (98-107) mmol/L Carbon Dioxide 30 (21-32) mmol/L Anion Gap 8 (3-11) BUN 15 (6-23) mg/dl Creatinine 1.09 (0.6-1.4) mg/dl Est Cr Clr Drug Dosing 110.8 ml/min eGFR 84.24 BUN/Creatinine Ratio 13.8 (10-20) Glucose 120 H (70-99(Fasting)) mg/dl Lactate (0.4-2.0) mmol/L Calcium 9.3 (8.6-10.3) mg/dl Magnesium (1.7-2.4) mg/dl Total Bilirubin 0.4 (0.2-1.0) mg/dl AST 15 (13-39) U/L ALT 22 (7-52) U/L Alkaline Phosphatase 70 (34-104) U/L Troponin I High Sens (0-20) pg/ml Total Protein 7.6 (6.0-8.3) gm/dl Albumin 4.7 (3.4-5.0) gm/dl Globulin 2.9 (2.5-4.0) gm/dl Albumin/Globulin Ratio 1.6 (0.9-2) Lipase 16 (11-82) U/L Procalcitonin 0.06 (0-0.5) ng/ml Urine Color Dark Yellow Urine Appearance Clear (Clear) Urine pH 6.0 (4.5-7.5) Ur Specific [place] 1.023 (1.000-1.030) Urine Protein Negative (Negative) Urine Glucose (UA) Negative (Negative) Urine Ketones Negative (Negative) Urine Blood Negative (Negative) Urine Nitrite Negative (Negative) Urine Bilirubin Negative (Negative) Urine Urobilinogen Negative (Negative) Ur Leukocyte Esterase Negative (Negative) 06/16/24 06/16/24 Range/Units 23:30 23:39 WBC (4.8-10.8) K/ul RBC (4.70-6.10) M/uL Hgb (14.0-18.0) g/dl Hct (42.0-52.0) % MCV (80.0-100.0) fL MCH (25.0-34.0) pg MCHC (32.0-36.0) g/dL RDW Std Deviation (36.4-46.3) fL RDW Coeff of Danilo (11.5-14.5) % Plt Count (130-400) K/uL MPV (9.4-12.4) fL Immature Gran % (Auto) % Neut % (Auto) % Lymph % (Auto) % Story % (Auto) % Eos % (Auto) % Baso % (Auto) % Neut # (Auto) (1.40-6.50) K/uL Lymph # (Auto) (1.20-3.40) K/uL Story # (Auto) (0.11-0.59) K/uL Eos # (Auto) (0.00-0.50) K/uL Baso # (Auto) (0.00-0.20) K/uL Immature Gran # (Auto) (0.01-0.20) K/uL Sodium (136-145) mmol/L Potassium (3.5-5.1) mmol/L Chloride (98-107) mmol/L Carbon Dioxide (21-32) mmol/L Anion Gap (3-11) BUN (6-23) mg/dl Creatinine (0.6-1.4) mg/dl Est Cr Clr Drug Dosing ml/min eGFR BUN/Creatinine Ratio (10-20) Glucose (70-99(Fasting)) mg/dl Lactate 1.9 (0.4-2.0) mmol/L Calcium (8.6-10.3) mg/dl Magnesium 2.0 (1.7-2.4) mg/dl Total Bilirubin (0.2-1.0) mg/dl AST (13-39) U/L ALT (7-52) U/L Alkaline Phosphatase (34-104) U/L Troponin I High Sens 5.9 (0-20) pg/ml Total Protein (6.0-8.3) gm/dl Albumin (3.4-5.0) gm/dl Globulin (2.5-4.0) gm/dl Albumin/Globulin Ratio (0.9-2) Lipase (11-82) U/L Procalcitonin (0-0.5) ng/ml Urine Color Urine Appearance (Clear) Urine pH (4.5-7.5) Ur Specific [place] (1.000-1.030) Urine Protein (Negative) Urine Glucose (UA) (Negative) Urine Ketones (Negative) Urine Blood (Negative) Urine Nitrite (Negative) Urine Bilirubin (Negative) Urine Urobilinogen (Negative) Ur Leukocyte Esterase (Negative) Administered Medications Amlodipine Besylate (Amlodipine Besylate 5 Mg Tab) 5 mg PO QAM [facility] Stop: 07/17/24 08:59 Last Admin: 06/19/24 08:35 Dose: 5 mg Documented By: Admin: 06/18/24 07:57 Dose: 5 mg Documented By: Admin: 06/17/24 08:58 Dose: 5 mg Documented By: TY Piperacillin Sod/Tazobactam Sod (Zosyn) 4.5 gm in 100 mls @ 25 mls/hr IV Q8H [facility]; Protocol Stop: 06/27/24 08:14 Last Admin: 06/19/24 08:38 Dose: 25 mls/hr Documented By: Infusion: 06/19/24 03:54 Dose: Infused Documented By: Admin: 06/18/24 23:54 Dose: 25 mls/hr Documented By: Infusion: 06/18/24 20:57 Dose: Infused Documented By: Admin: 06/18/24 16:41 Dose: 25 mls/hr Documented By: Infusion: 06/18/24 12:01 Dose: Infused Documented By: Admin: 06/18/24 07:57 Dose: 25 mls/hr Documented By: Infusion: 06/18/24 05:48 Dose: Infused Documented By: Admin: 06/18/24 01:03 Dose: 25 mls/hr Documented By: Infusion: 06/17/24 21:53 Dose: Infused Documented By: Admin: 06/17/24 17:00 Dose: 25 mls/hr Documented By: Infusion: 06/17/24 12:50 Dose: Infused Documented By: Admin: 06/17/24 08:58 Dose: 25 mls/hr Documented By: TY Morphine Sulfate (Morphine Sulfate 2 Mg/Ml Carp) 2 mg IV Q3H PRN PRN Reason: Pain (1,2,3,4,5) & Pre PT Stop: 07/01/24 04:10 Last Admin: 06/19/24 07:33 Dose: 2 mg Documented By: Admin: 06/19/24 04:09 Dose: 2 mg Documented By: Admin: 06/19/24 00:50 Dose: 2 mg Documented By: Admin: 06/18/24 18:25 Dose: 2 mg Documented By: Admin: 06/18/24 14:58 Dose: 2 mg Documented By: Admin: 06/18/24 08:35 Dose: 2 mg Documented By: Admin: 06/18/24 01:09 Dose: 2 mg Documented By: Admin: 06/17/24 20:29 Dose: 2 mg Documented By: ADAM Morphine Sulfate (Morphine Sulfate 4 Mg/Ml 1 Ml Carp\Vial) 4 mg IV Q3H PRN PRN Reason: Pain (6,7,8,9,10) Stop: 07/01/24 10:54 Last Admin: 06/18/24 21:25 Dose: 4 mg Documented By: Admin: 06/18/24 12:08 Dose: 4 mg Documented By: Admin: 06/17/24 17:49 Dose: 4 mg Documented By: Admin: 06/17/24 12:55 Dose: 4 mg Documented By: TY Pantoprazole Sodium (Pantoprazole 40 Mg Tab) [facility] [place] Stop: 07/17/24 08:59 Last Admin: 06/19/24 08:35 Dose: 40 mg Documented By: Admin: 06/18/24 07:57 Dose: 40 mg Documented By: Admin: 06/17/24 08:58 Dose: 40 mg Documented By: TY Discontinued Medications Hydromorphone HCl (Hydromorphone Inj 1 Mg/Ml Syringe) 1 mg IV NOW STA Stop: 06/16/24 23:40 Last Admin: 06/16/24 23:59 Dose: 1 mg Documented By: KATRINA Hydromorphone HCl (Hydromorphone Inj 1 Mg/Ml Syringe) 1 mg IV NOW STA Stop: 06/17/24 00:39 Last Admin: 06/17/24 01:01 Dose: 1 mg Documented By: MORRIS Sodium Chloride (Nss) 1,000 mls @ 999 mls/hr IV .Q1H1M [facility]US Stop: 06/17/24 00:45 Last Infusion: 06/17/24 01:04 Dose: Infused Documented By: Admin: 06/16/24 23:59 Dose: 999 mls/hr Documented By: KATRINA Piperacillin Sod/Tazobactam Sod (Zosyn) 4.5 gm in 100 mls @ 200 mls/hr IV NOW ONE; Protocol Stop: 06/17/24 00:10 Last Infusion: 06/17/24 01:04 Dose: Infused Documented By: Admin: 06/17/24 00:31 Dose: 200 mls/hr Documented By: MORRIS Sodium Chloride (Nss) 500 mls @ 125 mls/hr IV .Q4H [facility] Stop: 06/17/24 06:14 Last Infusion: 06/17/24 06:20 Dose: Infused Documented By: Admin: 06/17/24 02:15 Dose: 125 mls/hr Documented By: MORRIS Sodium Chloride (Nss) 500 mls @ 999 mls/hr IV .Q31M ONE Stop: 06/17/24 02:33 Last Infusion: 06/17/24 02:57 Dose: Infused Documented By: Admin: 06/17/24 02:17 Dose: 999 mls/hr Documented By: MORRIS Ioversol (Optiray 320 100ml) 100 ml IV ONCE ONE Stop: 06/17/24 00:41 Last Admin: 06/17/24 00:40 Dose: 93 ml Documented By: BRENDAN Ketorolac Tromethamine (Ketorolac 30 Mg/Ml Vial) 30 mg IV Q6H PRN PRN Reason: Pain & Pre PT Stop: 06/22/24 04:10 Last Admin: 06/18/24 16:51 Dose: 30 mg Documented By: Admin: 06/18/24 05:16 Dose: 30 mg Documented By: Admin: 06/17/24 17:05 Dose: 30 mg Documented By: Admin: 06/17/24 10:58 Dose: 30 mg Documented By: Admin: 06/17/24 05:30 Dose: 30 mg Documented By: LUZMARIA Morphine Sulfate (Morphine Sulfate 2 Mg/Ml Carp) 2 mg IV Q3H PRN PRN Reason: Pain (6,7,8,9,10) Stop: 07/01/24 04:10 Last Admin: 06/17/24 08:57 Dose: 2 mg Documented By: Admin: 06/17/24 05:10 Dose: 2 mg Documented By: LUZMARIA Ondansetron HCl (Ondansetron Inj 2 Mg/Ml 2 Ml Vial) 4 mg IV NOW STA Stop: 06/16/24 23:40 Last Admin: 06/16/24 23:58 Dose: 4 mg Documented By: KATRINA Discharge Plan Visit Data Chief Complaint: Pelvic Pain Stated Complaint: PEVLIC PAIN,NAUSEA,UNABLE TO VOID ED Provider: Luz Meraz Discharge Problem: Diverticulitis of intestine with perforation Patient Disposition: Admitted As Inpatient Condition: Serious Discharge Instructions Interventions: ED Discharge Assessment Last Done: 06/17/24 03:30 Discharge Problem: Diverticulitis of intestine with perforation Qualifiers: Diverticulitis site: large intestine Diverticulitis bleeding: without bleeding Qualified Code(s): K57.20 - Diverticulitis of large intestine with perforation and abscess without bleeding
--- NOTE | 2024-06-18 17:25 | Electrocardiogram Report ---
Test Reason : Blood Pressure : */* mmHG Vent. Rate : 92 BPM Atrial Rate : 92 BPM P-R Int : 168 ms QRS Dur : 82 ms QT Int : 348 ms P-R-T Axes : 30 -1 7 degrees QTcB Int : 430 ms Normal sinus rhythm Normal ECG When compared with ECG of 04-Mar-2024 11:17, No significant change Confirmed by Sergio Gómez ([id number]) on 06/18/2024 5:25:21 PM Referred By: REFERRED SELF Confirmed By: Sergio Gómez
[2024-06-19 08:17] LABS: Basophils # (auto) 0.08 K/uL (0.00-0.20); Basophils % (auto) 0.4 %; Eosinophils # (auto) 0.51 K/uL (0.00-0.50); Eosinophils % (auto) 2.8 %; Hematocrit (blood only) 40.9 % (42.0-52.0); Hemoglobin 13.8 g/dl (14.0-18.0); Immature Granulocytes # (auto) 0.12 K/uL (0.01-0.20); Immature Granulocytes % (auto) 0.7 %; Lymphocytes # (auto) 1.06 K/uL (1.20-3.40); Lymphocytes % (auto) 5.7 %; Mean Corpuscular Hemoglobin 29.2 pg (25.0-34.0); Mean Corpuscular Hgb Conc 33.7 g/dL (32.0-36.0); Mean Corpuscular Volume 86.5 fL (80.0-100.0); Mean Platelet Volume 9.4 fL (9.4-12.4); Monocytes # (auto) 1.39 K/uL (0.11-0.59); Monocytes % (auto) 7.5 %; Neutrophils # (auto) 15.28 K/uL (1.40-6.50); Neutrophils % (auto) 82.9 %; Platelet Count 371 K/uL (130-400); RDW Coefficient of Variation 13.2 % (11.5-14.5); RDW Standard Deviation 41.2 fL (36.4-46.3); Red Blood Count 4.73 M/uL (4.70-6.10); White Blood Count 18.44 K/ul (4.8-10.8)
[2024-06-19] MEDS: KETOROLAC 30 MG/ML VIAL IV PRN (08:41)
[2024-06-19 08:53] LABS: Anion Gap 6 (3-11); BUN Creatinine Ratio 15.3 (10-20); Blood Urea Nitrogen 15 mg/dl (6-23); Calcium 8.3 mg/dl (8.6-10.3); Carbon Dioxide 27 mmol/L (21-32); Chloride 104 mmol/L (98-107); Creatinine Clr Calc Pharmacy 122.8 ml/min; Glucose 105 mg/dl (70-99(Fasting)); Sodium 137 mmol/L (136-145)
[2024-06-19] MEDS ORDERED: POLYETHYLENE (MIRALAX) 17 GM PACK PO PRN (10:42)
--- NOTE | 2024-06-19 11:16 | Surgery Progress Note ---
Date of Service June 19, 2024 Assessment & Plan (1) Diverticulitis: Plan: afebrile vital signs stable Leukocytosis improved to 18,000 from 22,000 yesterday Abdominal pain continues to improve Abdomen soft without distention rigidity rebound or peritonitis Passing flatus Plan: continue abx advance to full liquids continue to ambulate repeat am cbc pain management as needed will need colonoscopy in 6-[address] Lo who agrees with above. Admission and Anticipated Discharge Date Admission Date: June 17, 2024 Subjective Feeling better still having more gas pains but pain is more generalized instead of the right lower quadrant tolerating clear liquids no nausea no vomiting No fevers no chills Passing a lot of gas but no bowel movement Ambulating hallway No chest pain no shortness of breath Physical Exam Constitutional: WD/WN, vitals as above cooperative and comfortable; no acute distress and not ill appearing Respiratory: normal respiratory effort, lungs clear to auscultation Cardiovascular: RRR, no murmur, no edema Gastrointestinal (Abdomen): Inspection/Auscultation: abdomen normal to inspection and + abdomen distended (mild) Percussion/Palpation: + abdomen tender (RLQ on deep palpation), + guarding (RLQ on deep palpation) and abdomen soft; abdomen not rigid and abdomen not firm Skin: no rashes, warm and dry Psychiatric: A+Ox3, euthymic affect Results & Data Vital Signs (Past 12 Hours) Vital Signs Temp Pulse Resp BP Pulse Ox O2 Del Method 06/19/24 07:56 37.3 C 79 16 119/75 93 Room Air Laboratory Results 06/19/24 06/19/24 Range/Units 10:02 07:43 WBC 18.44 H (4.8-10.8) K/ul RBC 4.73 (4.70-6.10) M/uL Hgb 13.8 L (14.0-18.0) g/dl Hct 40.9 L (42.0-52.0) % MCV 86.5 (80.0-100.0) fL MCH 29.2 (25.0-34.0) pg MCHC 33.7 (32.0-36.0) g/dL RDW Std Deviation 41.2 (36.4-46.3) fL RDW Coeff of Danilo 13.2 (11.5-14.5) % Plt Count 371 (130-400) K/uL MPV 9.4 (9.4-12.4) fL Immature Gran % (Auto) 0.7 % Neut % (Auto) 82.9 % Lymph % (Auto) 5.7 % Nance % (Auto) 7.5 % Eos % (Auto) 2.8 % Baso % (Auto) 0.4 % Neut # (Auto) 15.28 H (1.40-6.50) K/uL Lymph # (Auto) 1.06 L (1.20-3.40) K/uL Nance # (Auto) 1.39 H (0.11-0.59) K/uL Eos # (Auto) 0.51 H (0.00-0.50) K/uL Baso # (Auto) 0.08 (0.00-0.20) K/uL Immature Gran # (Auto) 0.12 (0.01-0.20) K/uL Sodium 137 (136-145) mmol/L Potassium 3.7 TNP Chloride 104 (98-107) mmol/L Carbon Dioxide 27 (21-32) mmol/L Anion Gap 6 (3-11) BUN 15 (6-23) mg/dl Creatinine 0.98 (0.6-1.4) mg/dl Est Cr Clr Drug Dosing 122.8 ml/min eGFR 95.71 BUN/Creatinine Ratio 15.3 (10-20) Glucose 105 H (70-99(Fasting)) mg/dl Calcium 8.3 L (8.6-10.3) mg/dl
[2024-06-19] MEDS: DOCUSATE SODIUM 100 MG CAP PO SCH (12:19)
[2024-06-19 19:39] VITALS: RESP 18; TEMP 98.8
[2024-06-20 07:38] VITALS: BP 127/78; PULSE 72; O2SAT 98
[2024-06-20 07:53] LABS: Basophils # (auto) 0.07 K/uL (0.00-0.20); Basophils % (auto) 0.4 %; Eosinophils # (auto) 0.74 K/uL (0.00-0.50); Eosinophils % (auto) 4.2 %; Hematocrit (blood only) 40.1 % (42.0-52.0); Hemoglobin 13.4 g/dl (14.0-18.0); Immature Granulocytes # (auto) 0.13 K/uL (0.01-0.20); Immature Granulocytes % (auto) 0.7 %; Lymphocytes # (auto) 1.21 K/uL (1.20-3.40); Lymphocytes % (auto) 6.8 %; Mean Corpuscular Hemoglobin 28.7 pg (25.0-34.0); Mean Corpuscular Hgb Conc 33.4 g/dL (32.0-36.0); Mean Corpuscular Volume 85.9 fL (80.0-100.0); Mean Platelet Volume 9.3 fL (9.4-12.4); Monocytes # (auto) 2.08 K/uL (0.11-0.59); Monocytes % (auto) 11.7 %; Neutrophils # (auto) 13.59 K/uL (1.40-6.50); Neutrophils % (auto) 76.2 %; Platelet Count 447 K/uL (130-400); RDW Coefficient of Variation 13.2 % (11.5-14.5); RDW Standard Deviation 41.1 fL (36.4-46.3); Red Blood Count 4.67 M/uL (4.70-6.10); White Blood Count 17.82 K/ul (4.8-10.8)
--- NOTE | 2024-06-20 11:36 | Surgery Progress Note ---
Date of Service June 20, 2024 Assessment & Plan (1) Diverticulitis: Plan: afebrile vital signs stable Leukocytosis improved to 17k (18K) Abdominal pain continues to improve Abdomen soft without distention rigidity rebound or peritonitis +return of bowel function Plan: continue abx advance to low fiber diet continue to ambulate pain management as needed will need colonoscopy in 6-8 weeks low fiber diet on discharge possible discharge this afternoon with 1 week follow-up with PCP and repeat labs in 1 week 10 days of Oral Augmentin on discharge Discussed with Dr. Lo who agrees with above. Admission and Anticipated Discharge Date Admission Date: June 17, 2024 Subjective Feeling better still having more gas pains but pain is more generalized instead of the right lower quadrant tolerating full liquids no nausea no vomiting No fevers no chills Passing a lot of gas and bowel movements now, diarrhea Ambulating hallway No chest pain no shortness of breath Review of Systems Review of Systems: All systems reviewed & are unremarkable except as noted in HPI & below Physical Exam Constitutional: WD/WN, vitals as above + obese, cooperative and comfortable; no acute distress and not ill appearing Respiratory: normal respiratory effort, lungs clear to auscultation Cardiovascular: RRR, no murmur, no edema Gastrointestinal (Abdomen): Inspection/Auscultation: abdomen normal to inspection; abdomen not distended Percussion/Palpation: + abdomen tender (RLQ and LLQ on deep palpation) and abdomen soft; no guarding, abdomen not rigid and abdomen not firm Skin: no rashes, warm and dry Psychiatric: Orientation: alert and oriented x 3 Results & Data Vital Signs (Past 12 Hours) Vital Signs Temp Pulse Resp BP Pulse Ox O2 Del Method 06/20/24 07:37 37.1 C 72 18 127/78 98 Room Air Laboratory Results 06/20/24 Range/Units 07:04 WBC 17.82 H (4.8-10.8) K/ul RBC 4.67 L (4.70-6.10) M/uL Hgb 13.4 L (14.0-18.0) g/dl Hct 40.1 L (42.0-52.0) % MCV 85.9 (80.0-100.0) fL MCH 28.7 (25.0-34.0) pg MCHC 33.4 (32.0-36.0) g/dL RDW Std Deviation 41.1 (36.4-46.3) fL RDW Coeff of Danilo 13.2 (11.5-14.5) % Plt Count 447 H (130-400) K/uL MPV 9.3 L (9.4-12.4) fL Immature Gran % (Auto) 0.7 % Neut % (Auto) 76.2 % Lymph % (Auto) 6.8 % Wheeler % (Auto) 11.7 % Eos % (Auto) 4.2 % Baso % (Auto) 0.4 % Neut # (Auto) 13.59 H (1.40-6.50) K/uL Lymph # (Auto) 1.21 (1.20-3.40) K/uL Wheeler # (Auto) 2.08 H (0.11-0.59) K/uL Eos # (Auto) 0.74 H (0.00-0.50) K/uL Baso # (Auto) 0.07 (0.00-0.20) K/uL Immature Gran # (Auto) 0.13 (0.01-0.20) K/uL
--- NOTE | 2024-06-20 14:27 | Discharge Summary ---
Date of Service June 20, 2024 Admission HPI Per Admitting Provider This is a 49-year-old male who comes to the ED with acute abdominal pain. He denies any fevers or chills. A CT scan was done which shows diverticulitis with small perforation. Principal Diagnosis Acute diverticulitis with microperforation Discharge Exam Constitutional WD/WN, vitals as above cooperative and comfortable; no acute distress and not ill appearing Respiratory normal respiratory effort; no respiratory distress, no labored breathing and no retractions Gastrointestinal (Abdomen) Inspection/Auscultation: abdomen normal to inspection; abdomen not distended Percussion/Palpation: + abdomen tender (RLQ) and abdomen soft; no guarding, abdomen not rigid and abdomen not firm Skin no rashes, warm and dry Psychiatric Orientation: alert and oriented x 3 Discharge Data Allergies Allergy/AdvReac Type Severity Reaction Status Date / Time No Known Drug Allergies Allergy Verified 06/06/24 09:17 Consultations 06/17/24 02:02 ED Decision to Admit Stat 06/18/24 09:41 Consult Hospitalist Routine Ordered Studies 06/16/24 23:39 CT Abd and Pelvis [CT abd pelvis IV con only] Stat Hospital Course (1) Diverticulitis: Patient admitted to hospital and started on IV Zosyn, iv fluids, bowel rest, and pain management as needed. labs were followed due to leukocytosis of 22k on admission. Diet was advanced to low fiber diet by hospital day # 4 and pain controlled. IV zosyn was continued throughout his stay and transitioned to oral Augmentin for 10 days on discharge. Hospital course was uneventful. Leukoytosis persistent but improved to 17k on day of discharge. Advised for 1 week follow- up with PCP and 1 week follow up cbc to monitor labs. Total Time Total Time Spent Total Time Spent (In Minutes): 30 Total Time Includes: Examination of the Patient, Discharge Planning and Medication Reconciliation Discharge Plan Discharge Items Patient Disposition: Home - Self-Care Reason For Visit: DIVERTICULITIS Discharge Diagnosis: Acute diverticulitis with microperforation Condition on Discharge: Good Activity: As commented below Lifting: Gradually increase as tolerated Non-emergency contact: Primary Care Provider Call non-emergency contact if: you have any medication questions, your pain is not controlled, your pain is worsening and you have a fever Follow-up/Referrals: Osmar Osei, DO [Primary Care Provider] - Latanya López PA-C [Physician Packing Clerk] - Diet: Low Fiber Addtl Attending Provider Instructions: Low fiber diet on discharge for a few weeks will need colonoscopy in 6-8 weeks after discharge Take entire course of antibiotics as prescribed for 10 days. Monitor for increasing pain, fevers, chills, nausea and vomiting and call your PCP office or if severe report back to emergency department Your white blood cell count was still elevated on discharge, so recommending a repeat cbc blood draw to monitor in 1 week. This can be done with your PCP. May alternate extra strength Tylenol and Ibuprofen as needed for mild to moderate pain -650 mg Tylenol every 6 hours as needed - 600 mg Ibuprofen every 6 hours as needed (with food) - Percocet 1 tablet every 6 hours as needed for moderate to severe pain * each tablet of Percocet has 325 mg of Tylenol in it so do not avoid 3,000 mg of Tylenol in 24 hour period if alternate Tylenol and Ibuprofen. -Recommend daily stool softener (Colace) while taking narcotic pain medication to avoid constipation or straining. Drink plenty of water daily. Pending Studies at Discharge: No Stand-Alone Forms: My [facility] [employer], Smoking Cessation Medications and DC Order Prescriptions: New oxycodone-acetaminophen 5-325 mg tablet 1 tab PO Q6H PRN (Reason: pain) Qty: 10 0RF amoxicillin-pot clavulanate 875-125 mg tablet 1 tab PO BID Qty: 20 0RF Continued pantoprazole [Protonix] 40 mg tablet,delayed release (DR/EC) 40 mg PO QAM Qty: 90 3RF albuterol sulfate 90 mcg/actuation HFA aerosol inhaler 2 inh inhalation QID PRN (Reason: shortness of breath or wheezing) Qty: 8.5 2RF multivitamin [Daily Multi-Vitamin] Tablet 1 tab PO DAILY glucosamine-chondroitin 900-59-012-1 mg tablet 1 tab PO DAILY amlodipine 5 mg tablet 5 mg PO QAM Qty: 90 1RF triamcinolone acetonide 0.1 % cream 1 applic topical TID PRN (Reason: eczema) Qty: 30 1RF hydroxyzine HCl 25 mg tablet 25 mg PO BID PRN (Reason: itching) Qty: 60 1RF Lions Saroj Mushroom 1 unit 1 tab PO DAILY Solomon Multivitamin For Men 1 unit 1 tab PO DAILY meloxicam 15 mg tablet 15 mg PO DAILY PRN (Reason: Pain) diclofenac sodium 75 mg tablet,delayed release (DR/EC) 75 mg PO BID PRN (Reason: Pain) Discontinued oxycodone 5 mg tablet 5 mg PO Q6H PRN (Reason: pain) Qty: 30 0RF prednisone 20 mg tablet 20 mg PO DAILY Qty: 18 0RF Rx Instructions: Take PO w/ food. 3 daily x3d, then 2 daily x3d, then 1 daily x3d. Discharge Orders: Discharge Order (Routine); Ordered 06/20/24 Ordered By: Latanya Adams/Other Patient Handouts: Low-Fiber Diet, Diverticulitis Dc Admission Data Admit Date/Time: 06/17/24 02:29 Attending Provider: Yasmani Lo Admit Provider: Yasmani Lo Primary Care Provider: Osmar Osei Other Providers: Yasmani Lo; Darryn Russ; Milvia Schulte; Dao Larry; Eliu Bey; Aleksandr Davison; Giles Feliz; Alesia Keys; Denise Valdovinos; Sri Peoples; Acacia Bae; Rob Diego; Em Avalos; Reinier Long; Dao Walker; Isaac Smith; Negrito Lawson; Ani Moreira; Smiley Caldwell; Ana Brand; Emely Ornelas; Alexandria Henry.; Enrike Thorpe; Edmundo Robert; Isabel Thakur; Deysi Price; Yamil Lewis; Riley Valentin; Aleksandr Ariza; Olga Wu; Samaria Young; Daniela Acuna; Toney Crump; John An; Jose E Laurent; Aayush Mata; Sonali Smith; Amrit Ness; Zo Smith; Charly Ellis; Radha Min; Cosmo Adams; Jonathan Ellis N
== END 2024-06-20 15:28 | disposition home or self-care (01) | DRG 392 ==
LOC: ED 21:11 → 3N 06-17 02:29